=== PATIENT | male | born 1985 | race Caucasian/White ===

== ENCOUNTER 2016-09-22 19:34 | Emergency (ER) | payer OTHER ==
[~2016-09-22] VITALS: Ht 154.9 cm; Wt 66.0 kg
[~2016-09-22 19:34] MED LIST: CYCL-36 PO; IBUP-232 PO; OXYC-360 PO
[2016-09-22 19:35] VITALS: BP 171/86; PULSE 75; RESP 18; TEMP 97.8; O2SAT 99
[2016-09-22 19:44] VITALS: BP 124/74; PULSE 63; RESP 14; TEMP 98.1; O2SAT 98
[2016-09-22] MEDS ORDERED: SODIUM CHLOR 0.9% 1000 ML INJ 1,000 ML IV ONE (19:48)
--- NOTE | 2016-09-22 19:50 | PD ---
HPI Chief Complaint: Syncope/Near-Syncope Time Seen by Provider: 19:44 Travel History International Travel<30 days: No Contact w/Intl Traveler<30days: No Traveled to known affect area: No History of Present Illness HPI 31-year-old male here for syncopal episode. Patient and his significant other were at the beach much of the day today. Patient admits that he is only drink monster energy drinks all day, no other fluids. Denies any alcohol use today. States he felt overheated, lightheaded, dizzy, nauseous. No chest pain, shortness of breath or palpitations. Patient stood up and had a near syncopal episode. He feels improved at the moment, but still feels weak and somewhat lightheaded. PFSH Past Medical History Medical History: Denies Significant Hx Cancer: No Diabetes: No Psychiatric: No Seizures: No Thyroid Disease: No Ulcer: No Past Surgical History Abdominal Surgery: Yes (l inginal surg) Social History Alcohol Use: Yes Tobacco Use: Yes Substance Use: Yes (lortab 10 when he can get them) Allergies-Medications (Allergen,Severity, Reaction): Coded Allergies: No Known Allergies (Verified , 09/22/16) Reported Meds & Prescriptions Reported Meds & Active Scripts Active Percocet (Oxycodone/Acetaminophen) 5 Mg/325 Mg Tab 1-2 Tab PO Q4-6HPRN FOR PAIN Motrin (Ibuprofen) 600 Mg Tab 600 Mg PO Q8HPRN Flexeril (Cyclobenzaprine HCl) 10 Mg Tab 10 Mg PO TIDPRN Review of Systems Except as stated in HPI: all other systems reviewed are Neg Physical Exam Narrative GENERAL: Well-appearing male in no acute distress SKIN: Focused skin assessment warm/dry. Many tattoos HEAD:Normocephalic. EYES: No scleral icterus. No injection or drainage. ENT: Mucous membranes pink and moist. NECK: Supple CARDIOVASCULAR: Bradycardic with heart rate in the 50s to 60s, regular rhythm. No murmur appreciated. RESPIRATORY: No accessory muscle use. Clear to auscultation. Breath sounds equal bilaterally. GASTROINTESTINAL: Abdomen soft, non-tender, nondistended. MUSCULOSKELETAL: No obvious deformities.No edema. NEUROLOGICAL: Awake and alert. Motor grossly within normal limits. Normal speech. PSYCHIATRIC: Appropriate mood and affect; insight and judgment normal. Data Data Last Documented VS Vital Signs Date Time Temp Pulse Resp B/P Pulse Ox O2 Delivery O2 Flow Rate FiO2 09/22/16 19:46 61 14 98 Room Air 09/22/16 19:44 98.1 124/74 Orders Electrocardiogram (09/22/16 ) Basic Metabolic Panel (Bmp) (09/22/16 19:48) Complete Blood Count With Diff (09/22/16 19:48) Magnesium (Mg) (09/22/16 19:48) Ecg Monitoring (09/22/16 19:48) Iv Access Insert/Monitor (09/22/16 19:48) Oximetry (09/22/16 19:48) Ondansetron Inj (Zofran Inj) (09/22/16 20:00) Sodium Chloride 0.9% Flush (Ns Flush) (09/22/16 20:00) Sodium Chlor 0.9% 1000 Ml Inj (Ns 1000 M (09/22/16 19:48) Labs Laboratory Tests Test 09/22/16 19:55 White Blood Count 10.4 TH/MM3 Red Blood Count 4.96 MIL/MM3 Hemoglobin 14.6 GM/DL Hematocrit 42.6 % Mean Corpuscular Volume 85.9 FL Mean Corpuscular Hemoglobin 29.4 PG Mean Corpuscular Hemoglobin 34.3 % Concent Red Cell Distribution Width 13.7 % Platelet Count 259 TH/MM3 Mean Platelet Volume 9.3 FL Neutrophils (%) (Auto) 68.9 % Lymphocytes (%) (Auto) 22.9 % Monocytes (%) (Auto) 6.9 % Eosinophils (%) (Auto) 0.9 % Basophils (%) (Auto) 0.4 % Neutrophils # (Auto) 7.2 TH/MM3 Lymphocytes # (Auto) 2.4 TH/MM3 Monocytes # (Auto) 0.7 TH/MM3 Eosinophils # (Auto) 0.1 TH/MM3 Basophils # (Auto) 0.0 TH/MM3 CBC Comment DIFF FINAL Differential Comment Sodium Level 138 MEQ/L Potassium Level 3.2 MEQ/L Chloride Level 103 MEQ/L Carbon Dioxide Level 27.2 MEQ/L Anion Gap 8 MEQ/L Blood Urea Nitrogen 12 MG/DL Creatinine 0.92 MG/DL Estimat Glomerular Filtration 97 ML/MIN Rate Random Glucose 110 MG/DL Calcium Level 9.0 MG/DL Magnesium Level 2.3 MG/DL MDM Medical Decision Making Medical Screen Exam Complete: Yes Emergency Medical Condition: Yes Medical Record Reviewed: Yes Differential Diagnosis 31-year-old healthy male here with near syncopal episode today after being at the beach for a prolonged period of time. Differential includes dehydration, electrolyte abnormality, heat stroke, heat exhaustion, symptomatic anemia, arrhythmia. Narrative Course Patient placed on monitor, IV established and blood obtained. A twelve-lead EKG shows sinus bradycardia, rate 58 with sinus arrhythmia but no notable ST or T-wave abnormalities and normal intervals. Patient given 1 L normal saline bolus, 4 mg Zofran. CBC, BMP, magnesium notable for potassium 3.2. Replaced with 40 mEq orally and will be discharged home. Diagnosis Primary Impression: Near syncope Additional Impression: Hypokalemia Referrals: Primary Care Physician as needed Additional Instructions: Drink plenty of fluids and avoid prolonged heat exposure Med/Other Pt SpecificInfo: No Change to Meds Disposition: 01 DISCHARGE HOME Condition: Stable Aimee Devine MD Sep 22, 2016 19:50
[2016-09-22] MEDS ORDERED: ONDANSETRON HCL 4 MG/2 ML VIAL IVP ONE (20:00)
[2016-09-22] MEDS ORDERED: SODIUM CHLORIDE 0.9% FLUSH 10 ML FLUSH IVF PRN (20:00)
[2016-09-22 20:15] LABS: AUTOMATED NEUTROPHIL # 7.2 TH/MM3 (1.8-7.7); BASOPHIL % 0.4 % (0.0-2.0); EOSINOPHIL # 0.1 TH/MM3 (0-0.4); EOSINOPHIL % 0.9 % (0.0-4.0); HEMATOCRIT 42.6 % (39.0-51.0); HEMO FLAGS DIFF FINAL; LYMPH % 22.9 % (9.0-44.0); LYMPHOCYTE # 2.4 TH/MM3 (1.0-4.8); MEAN CELL VOLUME 85.9 FL (80.0-100.0); MEAN CORPUSCULAR HEMOGLOBIN 29.4 PG (27.0-34.0); MEAN CORPUSCULAR HGB CONC 34.3 % (32.0-36.0); MONO % 6.9 % (0.0-8.0); NEUT % 68.9 % (16.0-70.0); PLATELET COUNT 259 TH/MM3 (150-450); RED BLOOD COUNT 4.96 MIL/MM3 (4.50-5.90); RED CELL DISTRIBUTION WIDTH 13.7 % (11.6-17.2); WHITE BLOOD COUNT 10.4 TH/MM3 (4.0-11.0)
[2016-09-22 20:39] LABS: BICARBONATE 27.2 MEQ/L (21.0-32.0); MAGNESIUM 2.3 MG/DL (1.5-2.5); POTASSIUM 3.2 MEQ/L (3.5-5.1)
[2016-09-22] MEDS ORDERED: POTASSIUM CHLORIDE 20 MEQ CONTROLLED RELEASE TAB PO ONE (20:45)
--- NOTE | 2016-09-23 12:20 | EKG ---
Date Performed: 09/22/2016 Time Performed: 19:45:56 PTAGE: 31 years EKG: SINUS BRADYCARDIA WITH SINUS ARRHYTHMIA BORDERLINE ECG NO PREVIOUS TRACING DOCTOR: Moi Cullen Interpretating Date/Time 09/23/2016 12:17:36
== END 2016-09-22 21:08 | disposition home or self-care (01) ==
LOC: NEPE 19:34
DX: R55 Syncope and collapse (principal); E87.6 Hypokalemia; R00.1 Bradycardia, unspecified; I49.8 Other specified cardiac arrhythmias; Z72.0 Tobacco use
CPT/HCPCS: 80048; 83735; 85025; 93005; 96374; 99284; J2405; J7030